=== PATIENT | male | born 1940 | race Caucasian/White ===

== ENCOUNTER → 2022-12-06 | Outpatient (CLI) | payer MEDICARE ==
--- NOTE | 2022-12-07 07:15 | CT ---
EXAMINATION TYPE: CT cervical spine wo con DATE OF EXAM: 12/06/2022 COMPARISON: None HISTORY: Neck pain and stiffness CT DLP: 403.2 mGycm CONTRAST: None CT of the cervical spine is performed in the axial plane at 2 mm thick sections. Reconstructed image s in the coronal, and sagittal plane are reviewed on the computer. No acute fractures are evident. Vertebral body alignment is normal. There is loss of disc height throughout the cervical spine. This is greatest at C3-4 level. Some mild posterior endplate spurring is from the inferior right paracentral endplate of C3. No cord contact i s evident. Vertebral body heights are preserved. No spinal canal stenosis is evident Right foraminal narrowing from uncovertebral joint atrophy is present at C3-4. Mild bilateral foramin al narrowing is present C4-5, C5-6 and C6-7. IMPRESSIONS: 1. Diffuse degenerative disc changes with loss of disc height. 2. Right paracentral endplate spurring C3 with mild anterior thecal sac compression. No cord contact is evident. 3. Multilevel foraminal narrowing from uncovertebral opportunity
--- NOTE | 2022-12-07 10:59 | CT ---
EXAMINATION TYPE: CT lumbar spine wo con CT DLP: 922.0 mGycm, Automated exposure control for dose reduction was used. DATE OF EXAM: 12/06/2022 4:37 PM COMPARISON: None. CLINICAL INDICATION:Male, 82 years old with history of M48.062 SPINAL STENOSIS, LUMBAR REGION WITH NE UROG, Low back pain TECHNIQUE: Multiple axial images were obtained from the midportion of T11 through the sacroiliac nichole nts. Soft tissue and bone windows in coronal and sagittal planes were obtained and reviewed. Contrast used: none. Oral contrast used: none. FINDINGS: Alignment: There are 5 lumbar type vertebral bodies with grade 1 anterolisthesis of L4 and L5. No spo ndylolysis.. Bone: Multilevel disc degeneration changes throughout the spine worse at the lumbar spine with facet joint arthropathy, Schmorl's nodes, osteophytes and disc space narrowing. Discs: T12-L1: No spinal canal or neural foraminal stenosis is identified. L1-L2: There is some irregularity to the adjoining endplates of L1 and L2 with multiple Schmorl's nod es present. There are some fat stranding changes seen on axial imaging near this vertebral body level on axial imaging series 3 image 46 through 51 on the right. Facet joint arthropathy at this level wi th severe right and moderate severe left neural foraminal stenosis. L3-L4: Facet joint arthropathy and disc bulging result without significant spinal canal stenosis or n eural foraminal stenosis. L4-L5: Disc bulge and osteophyte formation as well as grade 1 anterolisthesis resulting in severe sp inal canal stenosis and moderate bilateral neural foraminal stenosis. L5-S1: Facet joint arthropathy and disc bulging result without significant spinal canal stenosis and moderate bilateral neural foraminal stenosis. Other: Surgical clips seen in the upper abdomen. Left renal cysts are present. Atherosclerosis of the arterial vasculature. Cardiac conduction leads are present. Scattered colonic diverticula present. IMPRESSION: 1. L1-L2 disc space narrowing with Schmorl's nodes and some adjacent fat stranding and possible cerv ical cortical irregularities along the adjoining endplates. Clinical correlation and Consider MRI for further evaluation for osteomyelitis discitis which is felt to be of low likelihood but not entirely ruled out. Facet joint arthropathy at this level with severe right and moderate severe left neural f oraminal stenosis. 2. L4-L5 disc bulge and osteophyte formation grade 1 anterolisthesis results in severe spinal canal stenosis and moderate bilateral neural foraminal stenosis. 3. Moderate to severe degeneration changes throughout the spine with worse at L1-L2 adjoining endpla roby at this height loss and multiple Schmorl's nodes. Grade 1 anterolisthesis of L4 and L5 without sp ondylolysis. 4. No evidence for spinal fracture.
== END | disposition home or self-care (01) ==
LOC: RADCTMAIN 16:07
PROVIDERS: ATTEND Physical Medicine & Rehabilitation
DX: M50.121 Cervical disc disorder at C4-C5 level with radiculopathy (principal); M43.17 Spondylolisthesis, lumbosacral region; M48.062 Spinal stenosis, lumbar region with neurogenic claudication; M51.17 Intervertebral disc disorders with radiculopathy, lumbosacral region; M43.16 Spondylolisthesis, lumbar region; M99.73 Connective tissue and disc stenosis of intervertebral foramina of lumbar region
CPT/HCPCS: 72125; 72131

== ENCOUNTER → 2022-12-19 | Outpatient (CLI) | payer MEDICARE ==
[2022-12-19 15:01] LABS: HCT 40.8 % (39.6-50.0); HGB 13.5 d/dL (12.0-15.0); MCH 31.5 pg (27.0-32.0); MCHC 33.1 d/dL (32.0-37.0); MCV 95.3 FL (80.0-97.0); Mean Platelet Volume 11.1 FL (9.5-12.2); NRBC Per 100 WBC 0 X 10*3/uL (0.00-0.01); Platelet Count 137 X 10*3/uL (140-440); RBC 4.28 X 10*6/uL (4.40-5.60); RDW 13.6 % (11.5-14.5); WBC 4.58 X 10*3/uL (4.50-10.00)
[2022-12-19 18:01] LABS: Erythrocyte Sedimentation Rate 2 mm/Hr (0-20)
--- NOTE | 2022-12-19 18:21 | NM ---
EXAMINATION TYPE: NM bone scan whole body DATE OF EXAM: 12/19/2022 COMPARISON: CT 12/06/2022 HISTORY: Spondylosis Delayed whole-body scanning was performed following the injection of 22.0 mCi Tc 99m MDP. Images wer e acquired 3 hours post injection. FINDINGS: There is focal uptake in the right L2-3 region and this appears to correlate with the large spur iden tified on CT exam. There is some focal radiotracer accumulation in the region of the first right metatarsal-phalangeal j oint space. Milder uptake is present at the left first metatarsophalangeal joint. These areas are lik germán related to degenerative change. Degenerative type uptake appears to be at the bilateral shoulders . No suspicious photopenic defects are evident. IMPRESSION: 1. Uptake at the area of spondylosis at the L2-[address] findings
== END | disposition home or self-care (01) ==
LOC: RADNMMAIN 10:09
PROVIDERS: ATTEND Physical Medicine & Rehabilitation
DX: M47.817 Spondylosis without myelopathy or radiculopathy, lumbosacral region (principal)
CPT/HCPCS: 85652; 85027; 86140; 83520; 78306; 36415; A9503